=== PATIENT | female | born 1965 | race Asian ===

== ENCOUNTER 2022-03-13 13:46 | Emergency (ER) | payer OTHER, SELFPAY ==
[2022-03-13 13:48] VITALS: BP 124/54; PULSE 95; RESP 14; TEMP 36.2; O2SAT 97; BMI 21.9
--- NOTE | 2022-03-13 14:10 | EX.ED.VIS.UR ---
HPI HPI - URI History of Present Illness Chief Complaint: Cough Informant: patient and family Onset/Context/Timing Onset: Days Context: Gradual Onset Timing: Continuous Current Severity: Mild Maximum Severity: Mild Associated Symptoms Associated Symptoms: Positive for Nasal Congestion, Myalgias and Nonproductive cough; Negative for Nausea, Vomiting, Diarrhea, Shortness of Breath or Productive Cough Narrative Narrative: 56-year-old female past medical history of hypertension. States that she has had cough fever and sore throat since Sunday almost a week ago. Denies nausea or vomiting or diarrhea. Nonproductive cough. No shortness of breath. No abdominal pain or dysuria. Family used as paraprofessional interpreter. Prior similar symptoms: Yes Recent Illness/Hospitalization: No ROS ROS ED ROS Narrative Fever, chills, cough and body aches. Review of Systems ROS Unobtainable: Denies due to encephalopathy Constitutional Constitutional ED: Reports chills, fever(s) and subjective Eyes Eyes: Denies blurry vision ENT ENT ED: Reports rhinorrhea and sore throat; Denies ear pain Cardiovascular Cardiovascular: Denies chest pain Respiratory/Chest Respiratory/Chest: Reports cough; Denies dyspnea Gastrointestinal Gastrointestinal: Denies abdominal pain, constipation, diarrhea, melena, nausea or vomiting Genitourinary Genitourinary ED: Denies dysuria or hematuria Musculoskeletal Musculoskeletal: Denies arthralgias Integumentary Denies abscess Psychiatric Psychiatric: Denies anxiety Endocrine Endocrinology: Denies cold intolerance Hematologic/Lymphatic Hematologic/Lymphatic: Denies easy bleeding or easy bruising Allergic/Immunologic Allergic/Immunologic ED: Denies mouth swelling or tongue swelling PFSH PFSH Medical History no medical history Home Medications Tylenol 03/13/22 [History Last Taken Unknown] Allergy/AdvReac Type Severity Reaction Status Date / Time No Known Allergies Allergy Verified 03/13/22 13:48 Surgical History no surgical history Social History Smoking Status: Never smoker EXAM Physical Exam Narrative Exam Narrative: Evaluated female no acute distress vital signs stable afebrile. Pulse ox 97% room air no signs hypoxia. Patient does not look septic or toxic. Does not look dehydrated. Age ENT exam TMs normal. Minimal erythema posterior pharynx. No exudate. No trouble swallowing or breathing. No stridor or drooling. Neck nontender. No lymphadenopathy. No meningismus. Lungs clear to auscultation bilaterally. Dry cough. Heart regular rate and rhythm. Otherwise exam unremarkable. Const Vital Signs: 03/13/22 13:48 03/13/22 14:19 Temperature 97.2 F L Temperature Source Temporal Pulse Rate 95 Respiratory Rate 14 Respiratory Effort Normal Non-Labored Respiratory Depth Normal Respiratory Pattern Normal Blood Pressure 124/54 H Blood Pressure Mean 77 Pulse Ox 97 Oxygen Delivery Method Room Air Room Air Positive well nourished and well developed; Negative for obese, cachectic or contractures General Appearance ED: well developed and NAD; Negative for cachectic, contractures, cyanotic, diaphoretic or pallor Nutritional Appearance: Negative for cachectic or obese HEENT Reports moist mucous membranes; Denies dry mucous membranes normocephalic and atraumatic Face and Sinus: Negative for sinus tenderness Mouth ED: No dry mucous membranes Mouth: No dry mucous membranes Teeth and Gingiva: Negative for caries Throat: posterior oropharynx normal Eyes PERRL and EOMs intact bilaterally General Eye ED: Negative for pale conjunctiva or scleral icterus Neck no lymphadenopathy, supple, no meningeal signs and no JVD General: Negative for anterior neck swelling or lymphadenopathy Resp normal respiratory effort and clear to auscultation bilaterally Effort and Inspection: Negative for retractions Auscultation: Negative for rales, rhonchi or wheezes Cardio S1 normal heart sound, S2 normal heart sound and no murmurs Rate: regular rate Rhythm: regular rhythm GI non-tender, non-distended and no masses Inspection: Negative for abdominal distention Auscultation: normoactive bowel sounds Palpation: soft; Negative for tender Back/Spine no CVA tenderness and normal ROM General Back: Negative for CVA tenderness or other Cervical Spine: Negative for cervical spine tenderness Thoracic Spine / Upper Back: Negative for thoracic spinal tenderness Lumbar Spine / Lower Back: Negative for lumbar spinal tenderness Sacrum: Negative for tenderness Extremity normal to inspection and full ROM General Extremety ED: Negative for cyanosis or tenderness General Extremity: Negative for cyanosis Neuro oriented x3, CN's II-XII intact bilaterally and no sensory deficits noted Sensorium / Orientation: alert, oriented to person, oriented to place and oriented to time; Negative for orientation impaired, lethargic or stuporous Motor Exam: strength 5/5 throughout Psych mental status grossly normal Appearance: other Attitude: No agitated Mood & Affect: Negative for depressed, anxious or tearful Skin General Skin Exam: Negative for jaundice or pallor Lesions: no lesions Rashes: no rashes Trauma: Negative for abrasion or laceration MDM MDM MDM Narrative Medical decision making narrative: 36-year-old female most likely a viral syndrome. Will be tested for COVID and influenza. She did not want any Tylenol or Motrin. Currently she is afebrile. She does not need IV fluids or other labs at this time. Clinically her lungs are clear I do not suspect pneumonia I do not think she needs a chest x-ray. Repeat exam doing well at 3:15 PM. She will be discharged home treat as a viral syndrome. Fluids and rest. Tylenol Motrin. Warm salt water gargling. Follow-up if not improving. Lab Data Attestation: I reviewed the patient's lab results. Lab results narrative: Rapid COVID test and influenza both negative. Chest x-ray negative. Radiography Diagnostic Testing: Chest x-ray, portable, single view interpreted by myself shows no acute malady. Normal cardiac silhouette mediastinum. No infiltrate. Discharge Plan Triage Chief Complaint: Cough ED Provider: Kiel Cason Dx/Rx/DC Orders Clinical Impression: Viral syndrome Instructions: ED Viral Syndrome (Adult) Prescriptions: No Action Tylenol Primary Care Provider: Care Physician,No Primary Referrals: Jayme Mccabe MD [Med Staff - Post Production Assistant] - 1 Week if not improving Care Physician,No Primary [Primary Care Provider] - Activity Restrictions/Additional Instructions: Your chest x-ray and COVID and influenza test were all negative. Plenty of fluids and rest. Tylenol and Motrin for body aches and fevers. Warm salt water gargle. Follow-up if not improving. Disposition Disposition: Home, Self Care
[2022-03-13 14:19] VITALS: O2SAT 97
--- NOTE | 2022-03-13 15:12 | RAD_ITS ---
STUDY: X-RAY CHEST REASON FOR EXAM: Female, 56 years old. Cough TECHNIQUE: Single AP portable view of the chest. COMPARISON: None. FINDINGS: The lungs are clear and expanded. There is no demonstrated pleural abnormality. Normal size heart. Normal mediastinum and sammy. Normal visualized pulmonary arteries. Normal visualized aortic arch and descending thoracic aorta. Normal visualized thoracic spine. Normal visualized ribs, clavicles, and shoulders. There is no demonstrated abnormality of the visualized soft tissue structures of the upper abdomen. RAD/Chest 1 View (Portable) IMPRESSION: Normal x-ray examination of the chest. Electronically Signed: Camden Lim MD at 15:28 EST ,
[2022-03-13 15:16] VITALS: RESP 16
== END 2022-03-13 15:30 | disposition home or self-care (01) ==
PROVIDERS: Emergency Provider Emergency Medicine; Visit Provider Emergency Medicine
DX: B34.9 Viral infection, unspecified (principal); Z20.822 Contact with and (suspected) exposure to COVID-19; I10 Essential (primary) hypertension; M79.10 Myalgia, unspecified site; R09.81 Nasal congestion; R05.9 Cough, unspecified; R50.9 Fever, unspecified; J02.9 Acute pharyngitis, unspecified
CPT/HCPCS: 71045; 87428; 99282